=== PATIENT | male | born 1990 | race Caucasian/White ===

== ENCOUNTER 2017-07-15 23:01 | Emergency (ER) | END 2017-07-16 01:30 | disposition left against medical advice (07) ==

== ENCOUNTER 2018-12-28 05:19 | Emergency (ER) | payer MEDICAID ==
[~2018-12-28] VITALS: Ht 175.3 cm; Wt 75.0 kg
[~2018-12-28 05:19] MED LIST: ARIP5TAB14 PO; ASC500 PO; CHLO25CA9 PO; DOCU-144 PO; FER325 PO; FOLI-49 PO; MULTI PO; ONDA4TAB8 PO; THIA100T56 PO
[2018-12-28 05:25] VITALS: Ht 175.3 cm; Wt 75.0 kg
[2018-12-28] MEDS ORDERED: ONDANSETRON 4 MG INJ IV STA (05:43)
[2018-12-28] MEDS ORDERED: BELLADONNA/PHENOBARBITAL TAB PO STA (05:43)
[2018-12-28] MEDS ORDERED: SOD CHLORIDE 0.9% 1,000 ML IV STA (05:43)
[2018-12-28] MEDS ORDERED: LORAZEPAM 2 MG INJ IV ONE ×2 (06:00)
[2018-12-28] MEDS ORDERED: LIDOCAINE 2% VISC 10 ML CUP PO ONE (06:00)
[2018-12-28] MEDS ORDERED: AL HYDROX/MG HYDROX/SIMETH 30 ML CUP PO ONE (06:00)
[2018-12-28] MEDS ORDERED: ONDANSETRON 4 MG INJ ONE (06:02)
[2018-12-28 07:33] VITALS: BP 150/89; PULSE 106; RESP 20
== END 2018-12-28 07:39 | disposition home or self-care (01) ==
LOC: E/R 05:19
DX: F10.10 Alcohol abuse, uncomplicated (principal); F17.210 Nicotine dependence, cigarettes, uncomplicated; R10.9 Unspecified abdominal pain
CPT/HCPCS: 36415; 80053; 80307; 83690; 84484; 85025; 93005; 96374; 96375; J2060; J2405; J7030; Z7502